=== PATIENT | male | born 1950 | race Caucasian/White ===

== ENCOUNTER 2016-05-20 15:25 | Emergency (ER) | payer OTHER ==
[~2016-05-20] VITALS: Ht 188 cm; Wt 106.6 kg
[2016-05-20] MEDS ORDERED: VALTREX1 GM PO (15:46)
[2016-05-20] MEDS ORDERED: MEDROL 4MG. DOSE4 MG PO (15:46)
--- NOTE | 2016-05-20 15:47 | Emergency Room Report ---
History of Present Illness Time Seen by [id number] Presenting Problem in Triage Pt arrived:Walked Presenting Problem:PATIENT STATES HE HAS HAD DISCOMFORT ON HIS RIGHT SIDE FOR 2 DAYS. BLISTERS ARE NOTED ON THE RIGHT SIDE OF HIS ABDOMEN. Onset of symptoms date/time:/ or onset unknown for:MEDICAL HX UNKNOWN Treatment Prior to Arrival: ELECTRO TECH Provided by: Sepsis Risk Assessment: Temp: 98.1 B/P: 156/86 MAP: 109 Pulse: 85 Resp: 20 Recent fever? N Clinical Suspician of Infection? N Mental Status: 1 - Regular (Normal Baseline) Sepsis Risk:Low Sepsis Risk Have you (or family members/close friends) recently traveled outside the [place]? N If Yes, where/when: Have you had exposure to infectious disease within the past month? TB? Other? Specify: Source patient Exam Limitations no limitations Comment Patient presents to ER with complaints of rash that starts right mid back and extends around to his chest. He first noticed the rash yesterday. He had some mild discomfort 2 days ago which he attributed to a rib strain because he is here from [place] helping his daughter move. He denies any previous outbreaks of shingles, and he did have chicken pox in childhood. Timing/Duration days (2) Severity mild Associated Symptoms rash ALLERGIES Coded Allergies: No Known Allergies (05/20/16) History Medical History General Cancer? Yes Immunization Hx DT/Tetanus 1-4 Years Ago Surgical Hx Previous Surgery?Y Appendectomy PROSTRATE REMOVED TONSILS Social History Smoking Hx Smoker: Current Every Day Smoker Tobacco: Yes Type Snuff Alcohol Alcohol: Yes Review of Systems All Other Systems Reviewed and Negative Skin rash, other (skin sensitivity) Physical Exam Vital Signs Vital Signs Date Time Temp Pulse Resp B/P Pulse O2 O2 Flow FiO2 Ox Delivery Rate 05/20 1530 98.1 85 20 156/86 98 General Appearance normal appearance, WD/WN, no apparent distress Eye Exam - bilateral eye normal exam, bilateral eye PERRL, bilateral eye EOMI Respiratory Status Yes: trachea midline, chest symmetrical, non tender chest. No: respiratory distress. Lung Sounds bilateral: normal breath sounds, lungs clear. 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 Blisters present anteriorly. No drainage. No induration. No signs or symptoms consistant with secondary skin infection. Medical Decision Making LABS/Meds/Orders Pt receiving controlled substance in ED? No Departure Departure Time of Disposition 1541 Disposition DC Home or Self Care(routine) Clinical Impression Primary Impression: Shingles Qualifiers: Herpes zoster complications: without complications Qualified Code: B02.9 - Zoster without complications Condition STABLE Patient Instructions DI for Shingles Additional Instructions Keep area clean, dry, and covered. Do not scratch, pick-at, or squeeze blisters. Monitor for secondary bacterial skin infections. May take tylenol while using the steroid for additional pain relief if needed. F/U with PCP if pain persists once lesions have resolved. Discharge Counseling Counseled pt/family regarding diagnosis, medications/RX, home care Prescriptions Current Visit Scripts VALACYCLOVIR HCL (Valtrex) 1 GM PO TID 7 Days Methylprednisolone (Medrol Dose Ama) 4 MG PO UD #1 AMA TAKE DIRECTED ON PACKAGING ED Critical Care Critical Care No Comments Keep area clean, dry, and covered. Do not scratch, pick-at, or squeeze blisters. Monitor for secondary bacterial skin infections. May take tylenol while using the steroid for additional pain relief if needed. F/U with PCP if pain persists once lesions have resolved. at [id number]
[2016-05-20 15:50] VITALS: BP 156/86
== END 2016-05-20 15:51 | disposition home or self-care (01) ==
LOC: ER 15:25
DX: B02.9 Zoster without complications (principal)